=== PATIENT | male | born 1945 | race Caucasian/White ===

== ENCOUNTER 2022-06-15 11:13 | Day surgery (SDC) | payer OTHER ==
[2022-06-10 10:48] LABS: BASOPHILS # (AUTO) 0.1 X10'3 (0-0.2); BASOPHILS % (AUTO) 1.4 % (0-1); EOSINOPHILS # (AUTO) 2.2 X10'3 (0-0.9); EOSINOPHILS % (AUTO) 26.1 % (0-6); HEMATOCRIT 44.2 % (42.0-52.0); LYMPHOCYTES # (AUTO) 0.7 X10'3 (1.1-4.8); MEAN CORPUSCULAR HEMOGLOBIN 33.4 PG (27.0-31.0); MEAN CORPUSCULAR VOLUME 98.4 FL (78-98); MEAN PLATELET VOLUME 7.8 FL (7.4-10.4); MONOCYTES # (AUTO) 0.7 X10'3 (0-0.9); MONOCYTES % (AUTO) 8.1 % (2-12); NEUTROPHILS # (AUTO) 4.7 X10'3 (1.8-7.7); NEUTROPHILS % (AUTO) 56.4 % (42-75); PLATELET COUNT 199 X10'3 (140-440); RED BLOOD COUNT 4.49 X10'6 (4.70-6.10); RED CELL DISTRIBUTION WIDTH 14.9 % (11.5-14.5); WHITE BLOOD COUNT 8.4 X10'3 (4.5-11.0)
[2022-06-10 11:01] LABS: APTT 49 SECONDS (22-32)
[2022-06-10 11:07] LABS: ALBUMIN 3.4 G/DL (3.4-5.0); ANION GAP 9 (8-16); BLOOD UREA NITROGEN 25 MG/DL (7-18); BUN/CREATININE RATIO 20.8 (5.4-32.0); CALCIUM 9.1 MG/DL (8.5-10.1); CHLORIDE 105 MMOL/L (99-107); CHOL/HDL RATIO 3.4 (0.00-4.99); CHOLESTEROL 141 MG/DL (0-200); GLUCOSE 138 MG/DL (70-104); HDL CHOLESTEROL 41 MG/DL (35-60); LDL CHOLESTEROL 77 MG/DL (50-100); POTASSIUM 4.1 MMOL/L (3.5-5.1); SODIUM 137 MMOL/L (135-145); TOTAL CARBON DIOXIDE 22.6 MMOL/L (24-32); TRIGLYCERIDES 223 MG/DL (20-135); eGFR 59 ML/MIN
[2022-06-10 11:27] LABS: PLATELET ESTIMATE NORMAL; TOTAL CELLS COUNTED 100
[2022-06-10 11:30] LABS: ELLIPTOCYTES FEW
[~2022-06-15] VITALS: Ht 167.6 cm; Wt 60.3 kg
[2022-06-15] VITALS (11 sets, daily range): BP systolic 108–142; BP diastolic 55–78
[~2022-06-15 11:13] MED LIST: ALB0.5UD IH; AMLO5TAB4 PO; ATOR20TA PO; BETA15CR40 TP; BUDE10.2 INH; CARB15DR2 EACHEYE; CARV25TA2 PO; CHOL100046 PO; CLOB15CR4 TOP; CYAN500T71 PO; ENOX60DI10 SUBCUT; FERR325T28 PO; GLIP5TAB13 PO; LOSA100T57 PO; METF500T PO; MULT-1179 PO; NAPH15DR57 OP; NITR0.4T48 SL; OMEG1CAP2 PO; OMEP20TA43 PO; POTA-82 PO; SPIR25TA5 PO; TEMA30CA PO; WARF3TAB56 PO
[2022-06-15] MEDS ORDERED: diphenhydrAMINE 25mg capsule PO PRN (12:05)
[2022-06-15] MEDS ORDERED: normal saline 1,000 ML IV SCH (12:05)
[2022-06-15] MEDS ORDERED: LORazepam 0.5 MG tablet PO PRN (12:05)
[2022-06-15] MEDS ORDERED: DILT-36 PO (12:06)
[2022-06-15] MEDS ORDERED: FURO40TA4 PO (12:06)
[2022-06-15] MEDS ORDERED: OMEP40CA21 PO (12:06)
[2022-06-15] MEDS ORDERED: [UNRECOGNIZED DRUG - OTHER] (12:10)
[2022-06-15] MEDS ORDERED: LORA10TA7 PO (12:13)
[2022-06-15] MEDS ORDERED: CETI10TA15 PO (12:14)
[2022-06-15] MEDS ORDERED: FLO0.4C PO (12:15)
[2022-06-15] MEDS ORDERED: ATOR40TA PO (12:16)
[2022-06-15] MEDS ORDERED: EMPAGLIFLOZIN PO (12:18)
[2022-06-15] MEDS ORDERED: CILO100T PO (12:20)
[2022-06-15] MEDS ORDERED: SACU1TAB (12:20)
[2022-06-15] MEDS ORDERED: ENOX40SY7 SUBCUT (12:21)
[2022-06-15] MEDS ORDERED: ENZA40CA PO (12:22)
[2022-06-15] MEDS ORDERED: TIOT4MIS3 (12:23)
[2022-06-15] MEDS ORDERED: SEMA1PEN3 (12:27)
[2022-06-15] MEDS ORDERED: LIDOcaine 1% 30ml preserv. free vial ONE (14:19)
[2022-06-15] MEDS ORDERED: midazolam 1 mg/ML 2ml injection ONE (14:19)
[2022-06-15] MEDS ORDERED: iohexol 350 MG/ML 50ML vial IV ONE ×3 (14:19→14:55)
[2022-06-15] MEDS ORDERED: fentaNYL/PF 50MCG/1 ML 2ML syringe ONE (14:19)
[2022-06-15] MEDS ORDERED: HYDROcodone/acetaminophen 10/325mg tab PO PRN (15:30)
[2022-06-15] MEDS ORDERED: OXAZEpam 15mg capsule PO PRN (15:30)
[2022-06-15] MEDS ORDERED: HYDROcodone/acetaminophen 5mg/325mg tablet PO PRN (15:30)
[2022-06-15] MEDS ORDERED: ondansetron/PF 4mg/2ml inj IV PRN (15:30)
--- NOTE | 2022-06-15 15:35 | NUR ---
Phoned daughter Kaylin, gave update, re: no stents placed, pt kristen procedure well, and approx DC home time.
--- NOTE | 2022-06-15 16:30 | NUR ---
Pt eating sandwich and drinking water without issues.
--- NOTE | 2022-06-15 17:30 | NUR ---
Pt sitting up in bed, right groin site stable.
== END 2022-06-15 18:20 | disposition home or self-care (01) ==
LOC: SSTAY O 11:13
PROVIDERS: ATTEND Student in an Organized Health Care Education/Training Program
DX: R94.39 Abnormal result of other cardiovascular function study (principal); I25.10 Atherosclerotic heart disease of native coronary artery without angina pectoris; J44.9 Chronic obstructive pulmonary disease, unspecified; E11.22 Type 2 diabetes mellitus with diabetic chronic kidney disease; I12.9 Hypertensive chronic kidney disease with stage 1 through stage 4 chronic kidney disease, or unspecified chronic kidney disease; N18.9 Chronic kidney disease, unspecified; I25.2 Old myocardial infarction; I48.91 Unspecified atrial fibrillation
CPT/HCPCS: 36415; 80048; 80061; 82948; 85025; 85610; 85730; 93005; 93459; 93567; 99152; C1769; J1644; J2250; J3010; J3490; J7030; Q0163; Q9967; 85007; 99153; A4620; A5120; A6258